=== PATIENT | female | born 1980 | race Hispanic/Latino ===

== ENCOUNTER 2022-12-25 09:48 | Day surgery (SDC) | payer OTHER, MEDICARE ==
[2022-12-23 14:00] VITALS: BP 130/85; PULSE 79; RESP 20
[~2022-12-25] VITALS: Ht 160 cm; Wt 82.5 kg
[2022-12-25 12:10] VITALS: BP 124/82; PULSE 74; RESP 16
[2022-12-25] MEDS ORDERED: PROPOFOL 10 MG/ML 20ML VIAL IV ONE (12:14)
[2022-12-25] MEDS ORDERED: LIDOCAINE HCL 1% 20 ML VIAL ONE (12:14)
[2022-12-25 12:27] VITALS: BP 112/65; PULSE 67; RESP 14
[2022-12-25 12:40] VITALS: BP 108/75; PULSE 63; RESP 14
[2022-12-25 12:55] VITALS: BP 120/72; PULSE 68; RESP 15
[2022-12-25 13:10] VITALS: BP 119/73; PULSE 67; RESP 16
== END 2022-12-25 13:15 | disposition home or self-care (01) ==
LOC: ENDO 09:48 → DAH 09:48 → ENDO 13:15
PROVIDERS: ATTEND Surgery
DX: K30 Functional dyspepsia (principal); Z20.822 Contact with and (suspected) exposure to COVID-19; K21.9 Gastro-esophageal reflux disease without esophagitis; K22.89 Other specified disease of esophagus; I10 Essential (primary) hypertension; E11.9 Type 2 diabetes mellitus without complications; G47.00 Insomnia, unspecified; J45.909 Unspecified asthma, uncomplicated; F41.9 Anxiety disorder, unspecified; F32.A Depression, unspecified; M19.90 Unspecified osteoarthritis, unspecified site; E78.00 Pure hypercholesterolemia, unspecified; Z79.01 Long term (current) use of anticoagulants; Z79.899 Other long term (current) drug therapy; Z98.890 Other specified postprocedural states; Z82.49 Family history of ischemic heart disease and other diseases of the circulatory system; Z83.3 Family history of diabetes mellitus; Z98.84 Bariatric surgery status; Z90.721 Acquired absence of ovaries, unilateral
CPT/HCPCS: 84703; 36415; 43239; 82948; 88305; 88312; J2704; A4620; A4215 ×2; A4223; A4222; A4221; A4663; A4606; J3490